=== PATIENT | female | born 1970 | race Caucasian/White ===

== ENCOUNTER → 2018-07-01 10:31 | Outpatient (CLI) | payer OTHER, SELFPAY ==
[2018-07-01 11:54] LABS: Absolute Neutrophil Count 8.3 X10^3/uL (2.0-7.7); Basophil# 0.02 X10^3/uL; Basophil% 0.2 % (0-1); Eosinophil# 0.05 X10^3/uL; Eosinophils% 0.5 % (0-5); Hematocrit 33.3 % (37-47); Hemoglobin 10.8 g/dl (12.0-15.0); Lymphocyte % 9.5 % (19-41); Mean Corp Hgb Conc 32.4 g/gl (32-36); Mean Corpuscular Hgb 28.6 pg (27.0-32.0); Mean Corpuscular Volume 88.3 fL (81-99); Mean Platelet Vol. 8.6 fl (6.2-12.0); Monocyte# 0.94 X10^3/uL; Monocyte% 8.9 % (0-10); Neutrophil # 8.32 X10^3/uL (2.7-7.7); Neutrophil % 78.9 % (47-70); Platelet Count 387 K/mm3 (150-450); RBC Distribution Width CV 15.4 % (11.6-14.6); Red Blood Count 3.77 M/mm3 (4.2-5.4); White Blood Count 10.5 K/mm3 (4.4-11.0)
[2018-07-01 11:58] LABS: POSITIVE COUNT YES; POSITIVE DIFFERENTIAL NO; POSITIVE MORPHOLOGY YES
[2018-07-01 11:59] LABS: ALB/GLOB Ratio 0.6 RATIO (0.9-2.4); AST(SGOT) 13 U/L (15-37); Alanine Aminotransfer ALT/SGPT 20 U/L (13-56); Albumin, Serum 2.4 g/dL (3.2-5.0); Alkaline Phosphatase 210 U/L (45-117); Anion Gap 11 (5-15); BUN 14 mg/dL (7-18); BUN/Creat Ratio 23.5 RATIO (10-20); Calcium,Total 8.3 mg/dL (8.5-10.1); Chloride 100 mmol/L (98-107); EST Glomerular Filtration Rate 115 mL/min (>60); Est Glom Filt Rate - Afr Amer 139 mL/min (>60); Globulin 4.1 g/dL (2.2-4.2); Glucose 82 mg/dL (74-106); Potassium 3.3 mmol/L (3.5-5.1); Protein, Total 6.5 g/dL (6.4-8.2); Sodium Level 138 mmol/L (136-145)
[2018-07-04 11:35] LABS: Pathologist Review Reviewed
== END ==
PROVIDERS: Family Provider Internal Medicine; PCP Internal Medicine; Referring Provider Urology; Visit Provider Urology
DX: N12 Tubulo-interstitial nephritis, not specified as acute or chronic (principal)
CPT/HCPCS: 36415; 80053; 85025

== ENCOUNTER → 2019-06-15 09:30 | Outpatient (CLI) | payer OTHER, SELFPAY ==
--- NOTE | 2019-06-15 06:55 | PCM.HP.OB ---
- Problem List (1) Menorrhagia Status: Acute History Date of Admission: 06/15/19 History of this : This is a 48 year-old with a history of new menorrhagia over the last 3 years. Cycles are regular. Medical History: Medical History (Last Updated 06/15/19 @ 06:56 by Luz Miner DO) Anxiety F41.9 Hypothyroid E03.9 Surgical History: Surgical History (Last Updated 06/15/19 @ 06:56 by Luz Miner DO) History of spinal fusion Z98.1 Allergies morphine Allergy (Verified 06/08/19 09:47) Hives sulfamethoxazole [From Bactrim] Allergy (Verified 06/08/19 09:47) Hives trimethoprim [From Bactrim] Allergy (Verified 06/08/19 09:47) Hives Home Medications: Home Medications Levothyroxine [Synthroid] 112 mcg PO DAILY 06/08/19 Sertraline HCl [Zoloft] 25 mg PO DAILY 06/08/19 Temazepam [Restoril] 7.5 mg PO PRN PRN 06/08/19 traMADol [Ultram (G)] 50 mg PO Q6H PRN PRN 06/08/19 Smoking Status: Former smoker History Past Pregnancies: Past Pregnancies Delivery Date Name GA/ Weeks Outcome Route Wt Sex Labor Length Anesthesia Delivery Location Provider FOB Review of Systems Constitutional: Denies: Fever Eyes: Denies: Blurred vision HEENT: Denies: Difficulty Hearing Cardiovascular: Denies: Chest Pain Respiratory: Denies: Cough, Shortness of Breath Gastrointestinal: Denies: Abdominal Pain Genitourinary: Denies: Dysuria Gynecological: Denies: Vaginal bleeding Psychiatric: Denies: Anxiety, Depression Physical Exam General: Alert, No apparent distress HEENT: Atraumatic Cardiovascular: Regular rate Lungs: Clear to auscultation Abdomen: Soft, Non Tender, Non-Distended Extremities:: No edema Neurological: Neuro grossly intact Assessment/Plan All Active Problems Menorrhagia (Acute) This is a 48 year-old with menorrhagia with regular cycle. Pelvic ultrasound shows a normal size uterus with 2 small fibroids that measure about 1 cm in size. The fibroids are possibly submucosal. Endometrial biopsy was benign. She had thyroid screening that was negative. Options for menorrhagia were discussed including medical management, uterine ablation, hysterectomy. Reviewed that the ablation may fail given the possible small submucosal fibroids. After discussion of risks, benefits, alternatives patient requested to proceed with an ablation.
[2019-06-15 08:25] VITALS: BP 104/77; PULSE 63; RESP 16; TEMP 36.4; O2SAT 100; BMI 18.1
[2019-06-15 08:37] LABS: Internal QC Validated? YES +Cl - CLEAR BKGD
[2019-06-15 08:38] LABS: Pregnancy, Urine Positive Negative
[2019-06-15] MEDS: Lactated Ringers 1,000 ML 100 ML IV (08:39)
[2019-06-15 09:16] LABS: hCG Titer Quant., Serum 6 mIU/mL (1-3)
== END ==
PROVIDERS: Anesthesiology; Family Provider Internal Medicine; PCP Internal Medicine; Referring Provider Obstetrics & Gynecology; Visit Provider Obstetrics & Gynecology
DX: D25.9 Leiomyoma of uterus, unspecified (principal); Z87.891 Personal history of nicotine dependence; Z79.899 Other long term (current) drug therapy; E03.9 Hypothyroidism, unspecified; F41.9 Anxiety disorder, unspecified; N92.0 Excessive and frequent menstruation with regular cycle
CPT/HCPCS: 81025; 84702; 86850; 86900; 86901; J7120

== ENCOUNTER → 2019-06-19 13:03 | Outpatient (CLI) | payer OTHER, SELFPAY ==
[2019-06-15 08:25] VITALS: BMI 18.1
[2019-06-19 14:49] LABS: hCG Titer Quant., Serum 9 mIU/mL (1-3)
== END ==
PROVIDERS: Family Provider Internal Medicine; PCP Internal Medicine; Referring Provider Internal Medicine; Visit Provider Internal Medicine
DX: O02.81 Inappropriate change in quantitative human chorionic gonadotropin (hCG) in early pregnancy (principal); Z3A.00 Weeks of gestation of pregnancy not specified
CPT/HCPCS: 84702

== ENCOUNTER → 2019-06-22 10:27 | Outpatient (CLI) | payer OTHER, SELFPAY ==
[2019-06-15 08:25] VITALS: BMI 18.1
[2019-06-22 10:57] LABS: LDH 181 U/L (84-246)
[2019-06-22 11:00] LABS: hCG Titer Quant., Serum 9 mIU/mL (1-3)
== END ==
PROVIDERS: Family Provider Internal Medicine; PCP Internal Medicine; Referring Provider Internal Medicine; Visit Provider Internal Medicine
DX: O02.81 Inappropriate change in quantitative human chorionic gonadotropin (hCG) in early pregnancy (principal)
CPT/HCPCS: 83615; 84702

== ENCOUNTER → 2019-06-26 15:40 | Outpatient (CLI) | payer OTHER, SELFPAY ==
[2019-06-15 08:25] VITALS: BMI 18.1
[2019-06-26 16:32] LABS: Follicle Stimulating Hormone 132.9 mIU/mL
== END ==
PROVIDERS: Family Provider Internal Medicine; PCP Internal Medicine; Referring Provider Internal Medicine; Visit Provider Internal Medicine
DX: E34.9 Endocrine disorder, unspecified (principal)
CPT/HCPCS: 83001

== ENCOUNTER → 2019-11-03 12:37 | Outpatient (CLI) | payer OTHER, SELFPAY ==
[2019-11-02 15:32] VITALS: BMI 18.1
[2019-11-03 16:07] LABS: Estradiol 276.9 pg/mL; Follicle Stimulating Hormone 6.4 mIU/mL; Free T3 2.1 pg/mL (2.18-3.98); Luteinizing Hormone 2.8 mIU/mL; Prolactin 27.6 ng/mL; T4 Free Direct 0.65 ng/dL (0.76-1.46); Thyroid Stim Hormone (TSH) 3.35 uIU/mL (0.358-3.74)
[2019-11-07 20:03] LABS: Insulin Like Growth Factor 134 ng/mL (57-195)
== END ==
PROVIDERS: Internal Medicine Endocrinology, Diabetes & Metabolism; PCP Internal Medicine; Referring Provider Internal Medicine; Visit Provider Internal Medicine
DX: E03.8 Other specified hypothyroidism (principal); E06.3 Autoimmune thyroiditis; E22.9 Hyperfunction of pituitary gland, unspecified
CPT/HCPCS: 36415; 82533; 82670; 83001; 83002; 84146; 84305; 84439; 84443; 84481

== ENCOUNTER 2019-12-19 07:36 | Day surgery (SDC) | payer OTHER, SELFPAY ==
[2019-11-24 11:32] VITALS: BMI 18.1
[2019-12-11 09:09] VITALS: BMI 18.6
[2019-12-19] VITALS (15 sets, daily range): BP systolic 114–161; BP diastolic 79–101; PULSE 68–84; RESP 15–20; TEMP 35.8–37.3; O2SAT 96–100; BMI 17.9; BMI 18.0
--- NOTE | 2019-12-19 | HYST_PTH ---
PATIENT: DOROTA JOHNS LOC: [facility] [place] U#:[id number] AGE/SX: 49/F ROOM: RE12/19/[address]: Dr. Jane Arroyo MD : 1970 BED: DIS: 12/19/2019 SPEC #: [id number] RECD: 12/19/19 13:38 STATUS: [place] RUTH #: [id number] HERNAN: 12/19/19 00:[address]: Jane Arroyo DEPT: SURGICAL PATHOLOGY RECD BY: Joey Garcia ENTERED: 12/19/19 13:38 SP TYPE: HYSTERECT OTHR DR: Dr. Margie Bearden MD Tissues: Uterus, NOS Procedures: Surgery Specimen Level V HEADER OPERATION: Hysterectomy, LAVH, bilateral salpingectomy, cysto PRE-OP DIAGNOSIS: False positive HCG, uterine fibroid, abnormal uterine bleeding TISSUE SUBMITTED: Uterus, cervix and bilateral fallopian tubes MICROSCOPIC DIAGNOSIS Uterus, cervix and bilateral fallopian tubes, hysterectomy and bilateral salpingectomy: Cervix - mild chronic inflammation. Endometrium - proliferative endometrium. Myometrium - diffuse adenomyosis. - Intramural and subserosal leiomyomas (1 and 1.5 cm in greatest dimension). Bilateral fallopian tubes - no pathologic diagnosis. SJ:anders 12/20/19 MICROSCOPIC DESCRIPTION Slides are reviewed. GROSS DESCRIPTION Received in fixative is one container labeled with the patient's name and designated uterus. The specimen consists of a uterus with attached cervix and attached right and left fallopian tubes. The uterus with cervix measures 10 x 8 x 5.3 cm and weighs 120 gm. The ectocervix is grossly unremarkable. The uterus has previously been opened. The triangular endometrial cavity measures 4 x 3 cm. The endometrium is light wells, velvety and glistening and measures up to 0.1 cm in thickness. The myometrium measures 3 cm in greatest thickness and is grossly consistent with adenomyosis. A single rubbery nodule is present in the subserosa measuring 1.5 cm in greatest dimension. Cut sections of the nodule reveal a whorled appearance. The right and left fallopian tubes are similar in appearance with average lengths of 6.5 cm and average diameter of 0.7 cm. Organic Extractions Technician sections are submitted in nine cassettes as follows: 1 - anterior cervix, 2 - posterior cervix, 3 & 4 - anterior uterine wall, 5 & 6 - posterior uterine wall, 7 - myometrial mass, 8 - right fallopian tube, 9 - left fallopian tube. / AM:anders 12/19/19 TC:5 CPT: 08835
--- NOTE | 2019-12-19 08:06 | HP.PCM_ITS ---
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: Chronic History and Physical Date of Admission: 12/19/19 Intake Vital Signs 12/11/19 Height 5 ft 5 in 12/11/19 Weight: 112 lb 4 oz 12/11/19 BP 100/62 12/11/19 BMI 18.1 Intake Visit Reasons: pre op ERAS Medical Sales Specialist Required: No Is patient in pain?: No Allergies ciprofloxacin [From Cipro] Allergy (Severe, Verified 12/11/19 09:09) Nausea morphine Allergy (Verified 12/11/19 09:09) Hives sulfamethoxazole [From Bactrim] Allergy (Verified 12/11/19 09:09) Hives trimethoprim [From Bactrim] Allergy (Verified 12/11/19 09:09) Hives Medications Sertraline HCl [Zoloft] 25 mg PO DAILY 06/08/19 [History Confirmed 12/11/19] levothyroxine 50 mcg tablet 50 mcg PO DAILY 09/21/19 [History Confirmed 12/11/19] temazepam 30 mg capsule 30 mg PO QHS PRN 09/21/19 [History Confirmed 12/11/19] tramadol 50 mg tablet 50 mg PO Q8H PRN tab 09/21/19 [History Confirmed 12/11/19] Post menopausal: No Patient : No : No [facility] Medical History Anxiety (Acute) H/O urinary tract infection (Acute) Ahmet's disease (Acute) Kidney stones (Acute) Psoriatic arthritis (Acute) Raynauds disease (Acute) Seasonal allergies (Acute) Surgical History History of spinal fusion (Acute) Family History Father blood clots Heart disease Hypertension Hyperlipidemia Sister Breast cancer Uncle Lung cancer Prostate cancer Mother Diabetes CVA (cerebral vascular accident) Thyroid disorder Grandfather Skin cancer Aunt Skin cancer Social History (Updated 12/11/19 @ 09:[address] Jane Arroyo MD) Smoking Status: Former smoker alcohol intake: never substance use type: does not use caffeine: Yes what type of physical activity do you participate in: other frequency: 3-4 times per week seatbelt use: always do you feel safe at home: Yes additional social history: - Patient works at [employer] pre op ERAS: Details: DOROTA JOHNS is a 49 year old who presents for preop visit. she has a history of uterine fibroids with heavy painful menses and irregular bleeding. she also has a history of false positive HCGs but ahs been evaluated by endocrine and it is a false positive. Pregancy History 0 Elective abortions Hx Para Spontaneous abortions Hx # Term Pregnancies Ectopic pregnancies Hx # Pregnancies Multiple births # of living children ROS Const Constitutional: Denies fatigue, fever(s), headache(s), increased appetite, poor appetite, weight gain or weight loss ENT ENT: Denies dizziness or dry mouth Cardio Card: Denies chest pain Resp Resp: Denies cough or dyspnea GI GI: Reports as per HPI; denies abdominal pain, constipation, nausea or vomiting : Reports as per HPI; denies difficulty urinating, painful urination, nipple discharge, urinary frequency, urinary incontinence, urinary hesitancy, urinary urgency, vaginal discharge, vaginal dryness, vaginal odor or vaginal itching Musc Musc: Denies joint pain, back pain or muscle weakness Skin Skin/Breast: Denies nipple discharge Neuro Neuro: Denies dizziness Psych Psych: Denies anxiety or depression Endo Endo: Denies cold intolerance, excessive sweating, heat intolerance or increased thirst Azam/Lymph Hematologic/Lymphatic: Denies easy bleeding, Denies easy bruising, Denies enlarged lymph nodes Exam Const General: cooperative, healthy appearing, comfortable, no acute distress, well developed Nutritional Appearance: average body habitus Orientation: alert HENOR Head: normal to inspection, normocephalic Ears: hearing grossly normal bilaterally, external ears normal Nose: external nose normal, nares normal Face and sinus: normal facial exam Neck Neck: normal visual inspection, trachea midline Thyroid: thyroid normal Chest Chest palpation & inspection: normal inspection of the chest Resp Effort & Inspection: normal respiratory effort Cardio Rate: regular rate Rhythm: regular rhythm GI Inspection: normal to inspection, non-distended Palpation: soft, no hepatosplenomegaly Musc Cervical Spine: other Other: gross motor intact no deficits, full bilateral strength Skin General: no rashes or lesions noted Neuro General: alert, awake, moves all extremities, no focal motor deficits Motor: muscle tone normal throughout Extrem General: normal to inspection, no pedal edema Psych Appearance: grossly normal Mental Status: mental status grossly normal Affect: normal affect Speech and Movement: speech and movement normal Assessment & Plan Problems 1. false positive hcg history of false positive HCG levels, evaluated by endocrine 2. Fibroid, uterine D25.9 3. Abnormal uterine bleeding N93.9 plan LAVH BS possible cysto 4. Hyperpituitarism E22.9 Plan After discussing the patient's diagnosis and treatment plan options, patient wishes to proceed with surgical management. I have discussed with the patient the risks, benefits, and alternatives of the procedure which include but are not limited to risks of anesthesia, bleeding, infection, possible damage to bowel, bladder, or surrounding vasculature which could lead to additional surgery to evaluate any complications. Patient agrees to procedure and wishes to proceed. ACOG/uptodate references given for additional information regarding procedure. Coding Level of Care Code No Charge Diagnoses false positive hcg Fibroid, uterine D25.9 Abnormal uterine bleeding N93.9 Hyperpituitarism E22.9 UPDATE- I have seen the patient and performed any clinically relevant updates to the history and physical exam. Jane Arroyo MD
--- NOTE | 2019-12-19 08:07 | OP.PCM_ITS ---
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 Status: Chronic Report of Operation Date of Procedure: 12/19/19 Pre-Operative Diagnosis: aub fibroids Post-Operative Diagnosis: same Surgery/Procedure Performed:: Laparoscopic-assisted vaginal hysterectomy bilateral salpingectomy cystoscopy Description of Surgical Findings:: enlarged thick fibroid uterus health education director: Jaclyn Garcia Type of Anesthesia:: General Special Medications: sima Specimen's removed: uterus tubes Drains: velez removed at end of procedure Estimated Blood Loss (mL): 100 Fluids Replaced: crystalloid Description of Procedure: Patient received preoperative antibiotics and SCDs were on preoperatively. Patient was taken back to the operating room and placed in the dorsal lithotomy position. General anesthesia was induced and patient was prepped and draped in normal sterile fashion. Uterine manipulator was placed inside the uterus and Velez catheter placed in the bladder. The umbilicus was grasped with towel clamps and an intraumbilical incision was made after injecting with quarter percent Marcaine and a Veress needle entered into the abdomen confirmed to be intra-abdominal with a low opening pressure. Abdomen was insufflated with CO2 gas and the Veress needle removed and the 5 mm trocar was placed under direct visualization without complication. Right and left lower quadrants were transilluminated and injected with quarter percent Marcaine and 5 mm ports placed under direct visualization. Pelvis was well visualized see operative findings for additional information. Bilateral fallopian tubes were identified and transected with the LigaSure device across the mesosalpinx to the level of the utero-ovarian ligament which was also transected with the LigaSure device. The broad ligament was opened up by transecting the round ligament bilaterally and skeletonizing the uterine vessels bilaterally and creating a bladder flap using the LigaSure device. The uterine arteries were transected bilaterally with good visualization of the bladder and the ureters were seen to be inferior lateral to the operative area. Attention was then paid to the vaginal portion of the procedure and the cervix was grasped with Rachel clamps and circumferentially injected with dilute vasopressin. A circumferential incision was made and the vaginal mucosa was mobilized off posteriorly and the cul-de-sac entered into sharply and a longneck speculum placed. The anterior cul-de-sac was then identified and entered into sharply. The uterosacral ligaments were clamped cut and suture ligated with 0 Monocryl bilaterally followed by the cardinal ligaments which were clamped cut and suture ligated bilaterally with 0 Monocryl. The uterus serially descended and was removed without difficulty with minimal morcellation. Pelvic sidewall pedicles were checked and noted to have excellent hemostasis. The vaginal mucosa was reapproximated incorporating the posterior peritoneum. This was reapproximated using 0 Vicryl [id number] s utures. Excellent hemostasis was noted. The cystoscopy was then performed and bilateral ureteral strong spray was noted and the bladder was noted to have no abnormality or lesions seen. Velez catheter was replaced, drained, and removed and then attention paid to the abdominal portion of the procedure again. The pelvis and cul-de-sac was well visualized and no significant active bleeding noted but some raw areas were seen on the peritoneum and therefore Sima was applied. Pressure was taken down and the areas visualized and noted of excellent hemostasis. All ports were removed under direct visualization without complication and the abdomen was desufflated of air. The instruments removed from the abdomen and the vagina vaginal sweep was negative. small right vaginal laceration noted and repaired with silver nitrate and a 3-0 vicryl rapide. Port sites on the abdomen were closed with 4-0 Monocryl interrupted sutures and Steri's and windows were applied. She was awoken and taken recovery in stable condition. Grafts/Implants Used: none - Complications none - Admit VTE Documentation VTE Present on Admission: No VTE Mechan Device Prophylaxis: SCD's Multi Select Codes - Urinary/Genital Urinary/Genital CPT Codes: 86871 Cystoscopy, 87445 LAVH+BS/O <250gr Uterus
--- NOTE | 2019-12-19 08:11 | DCINST_ITS ---
Discharge Diet: No Restrictions Discharge Activity: Return to Normal Activity, May Not Drive, May Shower May resume sexual activity in: 6-8 weeks Call your doctor if your incision/area has: Continuous Slow Oozing, Sudden Increased Bleeding, Increased Pain/ Swelling, Increased Redness, Foul Smelling Discharge Call your doctor if you observe: Fever of 101 or Higher, Inability to urinate, Inability to have a bowel movement, Using more than one pad per hour Allergies/Adverse Reactions: Allergies ciprofloxacin [From Cipro] Allergy (Severe, Verified 12/12/19 11:05) Nausea morphine Allergy (Verified 12/12/19 11:05) Hives sulfamethoxazole [From Bactrim] Allergy (Verified 12/12/19 11:05) Hives trimethoprim [From Bactrim] Allergy (Verified 12/12/19 11:05) Hives Medications to take at Discharge Sertraline HCl [Zoloft] 25 mg PO DAILY 06/08/19 levothyroxine 50 mcg tablet 50 mcg PO DAILY 09/21/19 temazepam 30 mg capsule 30 mg PO QHS PRN 09/21/19 tramadol 50 mg tablet 50 mg PO Q8H PRN tab 09/21/19 Naproxen [Naprosyn] 250 - 500 mg PO Q8H PRN PRN #30 tab 12/19/19 Oxycodone HCl/Acetaminophen [Percocet 5-325] 1 - 2 tablet PO Q6H PRN PRN 7 Days #15 tablet 12/19/19 The following prescriptions were given: Naproxen [Naprosyn] 250 - 500 mg PO Q8H PRN PRN #30 tab PRN Reason: MILD PAIN Transmission Status: Pending to [facility] Oxycodone HCl/Acetaminophen [Percocet 5-325] 1 - 2 tablet PO Q6H PRN PRN 7 Days #15 tablet PRN Reason: Pain Transmission Status: Sent to [facility] Orders to be completed after discharge: Type & Screen - PAT ONLY Time Frame: 12/19/19, Facility: [facility], Location: Laboratory CBC-Complete Blood Cnt No Diff Time Frame: 12/19/19, Facility: [facility], Location: Laboratory Magnesium Time Frame: 12/19/19, Facility: [facility], Location: Laboratory ,Urine Time Frame: 12/19/19, Facility: [facility], Location: Laboratory Primary Care Physician: Margie Bearden MD [Primary Care Provider] - Test Results: Test results from this visit will be discussed in further detail at your follow- up appointment, if applicable. Please Follow Up With: Jane Arroyo MD - [phone]
[2019-12-19 08:16] LABS: Bedside Glucose 69 mg/dL (70-110)
[2019-12-19] MEDS: Acetaminophen 500 MG Tablet 1000 MG PO ×2 (08:32→15:39)
[2019-12-19] MEDS: Celecoxib 200 MG Capsule 400 MG PO (08:34)
[2019-12-19] MEDS: Gabapentin 600 MG Tablet PO (08:35)
[2019-12-19] MEDS: Phenazopyridine 95 MG Tablet 190 MG PO (08:35)
[2019-12-19] MEDS: Scopolamine 1mg/72hr Patch 1 PATCH TRANSDERM. (08:37)
[2019-12-19] MEDS: Lactated Ringers 1,000 ML 40 ML IV ×2 (08:39→10:45)
[2019-12-19] MEDS: dexAMETHasone 10 MG/ML Vial 8 MG IV (08:39)
[2019-12-19] MEDS: Enoxaparin 40 MG/0.4 ML Syringe SC (08:41)
[2019-12-19 08:50] LABS: Hematocrit 36.9 % (37-47); Mean Corp Hgb Conc 29.8 g/dL (32-36); Mean Corpuscular Volume 90.4 fL (81-99); Mean Platelet Vol. 8.7 fl (6.2-12.0); Platelet Count 319 K/mm3 (150-450); RBC Distribution Width CV 13.6 % (11.6-14.6); RBC Distribution Width SD 44.6 fl (35.1-43.9); Red Blood Count 4.08 M/mm3 (4.2-5.4); White Blood Count 6.2 K/mm3 (4.4-11.0)
[2019-12-19 08:56] LABS: Magnesium 2.3 mg/dL (1.6-2.6)
[2019-12-19] MEDS: Cefazolin 2 GM in 0.9% Normal Saline 100 ML IV (09:10)
[2019-12-19] MEDS: Ondansetron 4 MG/2 ML Vial IV (09:20)
[2019-12-19] MEDS: Bupivacaine 0.25% 30 ML Vial (09:57)
[2019-12-19] MEDS: Vasopressin 20 UNITS/ML Vial (10:21)
[2019-12-19] MEDS: Silver Nitrate (BKC) 1 EACH (10:36)
[2019-12-19] MEDS: oxyCODONE 5 MG Tablet PO (12:47)
[2019-12-19 13:34] LABS: Hematocrit 36.5 % (37-47); Mean Corp Hgb Conc 30.1 g/dL (32-36); Mean Corpuscular Hgb 26.8 pg (27.0-32.0); Mean Platelet Vol. 8.7 fl (6.2-12.0); Platelet Count 306 K/mm3 (150-450); RBC Distribution Width CV 13.4 % (11.6-14.6); White Blood Count 12.2 K/mm3 (4.4-11.0)
--- NOTE | 2019-12-19 13:58 | SUR.PHASEII ---
christianne pad changed due to large amt red vaginal drainage. umbillical dressing changed due to red drainage oozing beyond dressing. notified dr tricia elmore of umbillical drainage. instructed to apply pressure and call md if oozing persists through 4x4.
[2019-12-19] MEDS: Estrogens,Conj. 1 Tube 1 DOSE (14:09)
--- NOTE | 2019-12-19 14:16 | SUR.PHASEII ---
NOTIFIED DR QUILES REGARDING OOZING HAS CONTINUED FROM UMBILICAL INCISION. ALSO VAGINAL PAD HAS LG AMT RED DRAINAGE. WILL COME TO ASSESS PT AND APPLY PACKING NEEDED.
[2019-12-19] MEDS: Lactated Ringers 1,000 ML 70 ML IV (15:31)
[2019-12-19] MEDS: Ketorolac 30 MG/ML Syringe IV (15:32)
--- NOTE | 2019-12-19 17:30 | NURSING ---
pt with increased amount of bright red bleeding with clots. Dr. Arroyo at bedside for vaginal packing
[2019-12-19] MEDS: FERRIC SUBSULFATE 8 GM SOLN (18:43)
--- NOTE | 2019-12-19 20:05 | NURSING ---
Off going RN spoke with Dr. Arroyo, new order placed that pt needs to void within 2 hours or will have to receive velez and remain hospitalized overnight. If able to void pt may be d/c home. Pt was able to void 200ml of urine. No new bleeding on pad or packing, packing remains intact. Pt states no pain, vitals are stable. Pt provided with verbal and written discharge instructions including to call Dr. Arroyo's office at 8AM to schedule a time for packing to be removed. Pt has all valuables, prescriptions have already been picked up today. Pt is being assisted by [employer] via wheelchair to Main Entrance where pt's ride is currently waiting. Pt does not have any other questions or needs at this time.
== END 2019-12-19 20:05 | disposition home or self-care (01) ==
LOC: SDC 07:42 → AC 07:42 → MS3 14:39
PROVIDERS: Anesthesiology; PCP Internal Medicine; Referring Provider Obstetrics & Gynecology; Visit Provider Obstetrics & Gynecology
PROC: 0UT9FZZ Resection of Uterus, Via Natural or Artificial Opening With Percutaneous Endoscopic Assistance (ICD-10-PCS; CPT 58552; principal; 2019-12-19 09:05)
DX: D25.1 Intramural leiomyoma of uterus (principal); D25.0 Submucous leiomyoma of uterus; E06.3 Autoimmune thyroiditis; E22.9 Hyperfunction of pituitary gland, unspecified; L40.50 Arthropathic psoriasis, unspecified; I73.00 Raynaud's syndrome without gangrene; F41.9 Anxiety disorder, unspecified; Z79.899 Other long term (current) drug therapy; Z87.891 Personal history of nicotine dependence
CPT/HCPCS: 00944; 58552; 36415; 82962; 83735; 85027; 86850; 86900; 86901; 87635; 88307; 99251; G2023; J7120; G0463; J2405; U0003

== ENCOUNTER 2020-02-06 13:58 | Emergency (ER) | payer OTHER, SELFPAY ==
[2020-01-02 10:04] VITALS: BMI 18.0
[2020-02-06 13:59] VITALS: BP 123/71; PULSE 75; PULSE 79; RESP 12; RESP 15; TEMP 36.6; O2SAT 100; BMI 18.5
--- NOTE | 2020-02-06 14:17 | EKG12_ITS ---
Test Reason : SEIZURES Blood Pressure : / mmHG Vent. Rate : 075 BPM Atrial Rate : 075 BPM P-R Int : 176 ms QRS Dur : 086 ms QT Int : 456 ms P-R-T Axes : 081 -13 069 degrees QTc Int : 509 ms Normal sinus rhythm Possible Left atrial enlargement Inferior infarct (cited on or before 06-FEB-2020) Prolonged QT Abnormal ECG When compared with ECG of 27-SEP-2002 13:09, Vent. rate has decreased BY 46 BPM Confirmed by ROEL MICHAELS ([id number]), editor dictionary BEBETO CISNEROS ([id number]) on 02/19/2020 10:07:03 AM Referred By: TY Confirmed By:ROEL MICHAELS
--- NOTE | 2020-02-06 14:17 | CT_ITS ---
STUDY: CT BRAIN WITHOUT CONTRAST REASON FOR EXAM: Female, 49 years old. NEW ONSET OF SEIZURE, GRAND MAL SZ LASTING 1 MIN-WITNESSED BY COWORKERS, NAUSEA, LIGHTHEADED RADIATION DOSAGE (If Supplied By Facility): CTDIvol = ( 44.99 ) mGy, DLP = ( 779.24 ) mGycm TECHNIQUE: Transaxial CT imaging of the brain was performed without administration of intravenous contrast material. Individualized dose optimization techniques were used for this CT. COMPARISON: No relevant priors. FINDINGS: Normal soft tissue structures. Normal calvarium. Normal size ventricles and extra-axial spaces for the patient''s age. Normal white matter tracts of the cerebral hemispheres. Normal basal ganglia and thalami. Normal brainstem. Normal cerebellum. There is no intracranial hemorrhage. There are no findings of an acute ischemic infarction. Partial opacification of the left maxillary sinus and ethmoid sinuses bilaterally. Mucosal thickening along the anterior aspect of the sphenoid sinus. CT/Brain/Head without Contrast IMPRESSION: Normal unenhanced CT scan of the brain. Sinusitis. Electronically Signed: Clarke Bella, at 15:02 EDT , Service support ,
--- NOTE | 2020-02-06 14:18 | ED.DCSUM_ITS ---
History of Present Illness Chief Complaint: Seizure Narrative: Patient is a 49-year-old female who presents after a seizure. She has no prior history of seizures. Per bystanders she had 1 minute of tonic-clonic grand mal seizure-like activity. The patient states she just remembers waking on the floor. She denies any pain or injuries. Currently she has some mild nausea and feels tired but otherwise really has no complaints. She denies alcohol or drug use. She has a history of hypothyroidism and depression. She denies diabetes hypertension hyperlipidemia. She is not anticoagulated. She denies headache. Past Medical History - Allergies and Home Meds Allergies/Adverse Reactions: Allergies ciprofloxacin [From Cipro] Allergy (Severe, Verified 02/06/20 14:02) Nausea morphine Allergy (Verified 02/06/20 14:02) Hives sulfamethoxazole [From Bactrim] Allergy (Verified 02/06/20 14:02) Hives trimethoprim [From Bactrim] Allergy (Verified 02/06/20 14:02) Hives Primary Care Physician: Margie Bearden MD [Primary Care Provider] - Past Medical History: - - Hypothyroidism, depression Smoking Status: Former smoker Review of Systems All systems negative except as indicated General: Denies: Fever Cardiovascular: Denies: Chest pain Respiratory: Denies: Dyspnea Gastrointestinal: Reports: Nausea. Denies: Vomiting Musculoskeletal: Denies: Myalgias, Arthralgias Skin: Denies: Rash Neurological: Denies: Headache Hematologic: Denies: Easy bruising Allergy: Denies: Uticaria Physical Exam Vital Signs/Narrative: Vital Signs Temp Pulse Resp BP Pulse Ox 02/06/20 13:59 97.9 F 79 15 123/71 H 100 Inital Vital Signs reviewed: Yes General: Well nourished, Well developed Head: Normocephalic, Atraumatic Eyes: Perrl, EOMI ENT: Moist mucous membranes Neck: Supple Cardiovascular: Regular rate, Regular rhythm Respiratory: No distress, CTA bilaterally Abdomen: Soft, Nontender Skin: Normal color Neurological: Alert, - Psychological: Normal affect Diagnostic/Tx/Re-eval Impressions Brain CT 02/06/20 14:17 IMPRESSION: Normal unenhanced CT scan of the brain. Sinusitis. Electronically Signed: Clarke Bella, at 15:02 EDT , Service support , Chest X-Ray 02/06/20 14:50 IMPRESSION: 2.2 cm x 2.2 cm irregular density in the left lower lobe as described. This may represent a focal infiltrate. Radiographic follow-up is recommended. Electronically Signed: Clarke Bella, at 15:16 EDT , Service support , 02/06/20 14:17 Brain/Head without Contrast [CT] Stat 02/06/20 14:50 Chest 1 View (Portable) [RAD] Stat 02/06/20 15:28 CT Chest [Chest WITH Contrast] [CT] Stat Laboratory Results 02/06/20 02/06/20 02/06/20 14:20 14:20 14:20 WBC 6.3 RBC 4.29 Hgb 10.3 L Hct 35.9 L MCV 83.7 MCH 24.0 L MCHC 28.7 L RDW Std Deviation 43.8 RDW Coeff of Cally 14.3 Plt Count 377 MPV 8.7 Immature Gran % (Auto) 0.600 Neut % (Auto) 54.5 Lymph % (Auto) 29.5 [place] % (Auto) 8.9 Eos % (Auto) 5.4 H Baso % (Auto) 1.1 H Absolute Neuts (auto) 3.4 Absolute Lymphs (auto) 1.86 Nucleated RBC % 0 Sodium 140 Potassium 3.3 L Chloride 104 Carbon Dioxide 25.0 Anion Gap 11 BUN 14 Creatinine 0.90 Estim Creat Clear Calc 60.94 Est GFR (MDRD) Af Amer 86 Est GFR (MDRD) Non-Af 71 BUN/Creatinine Ratio 15.6 Glucose 93 Calcium 8.5 Total Bilirubin 0.40 AST 26 ALT 19 Alkaline Phosphatase 71 Total Protein 7.6 Albumin 3.9 Globulin 3.7 Albumin/Globulin Ratio 1.1 Ethyl Alcohol 8.0 - Medical Decision Making EKG shows normal sinus rhythm at a rate of 75 with no acute ischemic changes. Laboratory evaluation as above essentially unremarkable. A 2.2 x 2.2 nodular density is noted in the left lower lobe which may represent infiltrate. Patient has no leukocytosis fever cough or chest pain. I did order a CT of the chest to try to further characterize this. The patient will prefer to have this done as an outpatient which I believe is reasonable but did stress the importance of follow-up. CT of the head was negative. With a first-time seizure I believe outpatient neurology follow-up with seizure precaution/driving precautions appropriate. I stressed the importance of follow-up and return for any new or w orsening symptoms and the patient was discharged. ED Disposition - Plan for ED Patient: Disposition: Home or Assisted Living Diagnosis: Seizure, Abnormal chest xray Instructions: ED Seizure New Onset Unk Cause Referrals: Margie Bearden MD [Primary Care Provider] - Jeff Nguyễn MD [STAFF PHYSICIAN] - Additional Instructions: You appear to have had a first seizure today. It is recommended that you do not drive or operate any machinery or place herself in a situation may be dangerous if you have a seizure until follow-up with neurology. Additionally your chest x-ray showed a possible nodule. You will need some type of repeat imaging to reevaluate this. It is very important that you follow-up with your primary care physician in regards to this. Processes including cancer cannot be ruled out.
[2020-02-06 14:30] LABS: Absolute Lymphocyte Count 1.86 X10^3/uL (0.83-4.51); Absolute Neutrophil Count 3.4 X10^3/uL (2.0-7.7); Basophil# 0.07 X10^3/uL; Basophil% 1.1 % (0-1); Eosinophil# 0.34 X10^3/uL; Eosinophils% 5.4 % (0-5); Hematocrit 35.9 % (37-47); Hemoglobin 10.3 g/dL (12.0-15.0); Lymphocyte # 1.86 X10^3/ul (4.0); Lymphocyte % 29.5 % (19-41); Mean Corp Hgb Conc 28.7 g/dL (32-36); Mean Corpuscular Volume 83.7 fL (81-99); Mean Platelet Vol. 8.7 fl (6.2-12.0); Monocyte# 0.56 X10^3/uL; Monocyte% 8.9 % (0-10); NRBC Flagged by Analyzer 0 % (0-5); Neutrophil # 3.43 X10^3/uL (2.7-7.7); Neutrophil % 54.5 % (47-70); Platelet Count 377 K/mm3 (150-450); RBC Distribution Width CV 14.3 % (11.6-14.6); RBC Distribution Width SD 43.8 fl (35.1-43.9); Red Blood Count 4.29 M/mm3 (4.2-5.4); White Blood Count 6.3 K/mm3 (4.4-11.0)
[2020-02-06] MEDS: Ondansetron 4 MG/2 ML Vial IV (14:33)
[2020-02-06] MEDS: 0.9% Normal Saline 1,000 ML 1000 ML IV (14:34)
[2020-02-06 14:44] LABS: ALB/GLOB Ratio 1.1 RATIO (0.9-2.4); AST(SGOT) 26 U/L (15-37); Alanine Aminotransfer ALT/SGPT 19 U/L (13-56); Albumin, Serum 3.9 g/dL (3.2-5.0); Alkaline Phosphatase 71 U/L (45-117); Anion Gap 11 (5-15); BUN 14 mg/dL (7-18); BUN/Creat Ratio 15.6 RATIO (10-20); Calcium,Total 8.5 mg/dL (8.5-10.1); Chloride 104 mmol/L (98-107); EST Glomerular Filtration Rate 71 mL/min (>60); Est Glom Filt Rate - Afr Amer 86 mL/min (>60); Estimated Creatinine Clearance 60.94 ml/min; Globulin 3.7 g/dL (2.2-4.2); Glucose 93 mg/dL (74-106); Potassium 3.3 mmol/L (3.5-5.1); Protein, Total 7.6 g/dL (6.4-8.2); Sodium Level 140 mmol/L (136-145)
--- NOTE | 2020-02-06 14:50 | RAD_ITS ---
STUDY: X-RAY CHEST REASON FOR EXAM: Female, 49 years old. Patient had seizure while at work, no major medical Hx TECHNIQUE: Single AP portable view of the chest. COMPARISON: None. FINDINGS: EKG electrodes are seen. Hyperinflation. There is evidence of a 2.2 cm x 2.2 cm irregular nodular density in the left lower lobe. This may represent a focal infiltrate. Radiographic follow-up is recommended. There is no demonstrated pleural abnormality. Normal size heart. Normal mediastinum and deangelo. Normal visualized pulmonary arteries. Normal visualized aortic arch and descending thoracic aorta. Normal visualized thoracic spine. Prior fusion in the lower cervical spine. There is no demonstrated abnormality of the visualized soft tissue structures of the upper abdomen. RAD/Chest 1 View (Portable) IMPRESSION: 2.2 cm x 2.2 cm irregular density in the left lower lobe as described. This may represent a focal infiltrate. Radiographic follow-up is recommended. Electronically Signed: Clarke Bella, at 15:16 EDT , Service support ,
== END 2020-02-06 16:27 | disposition home or self-care (01) ==
PROVIDERS: Emergency Provider Emergency Medicine; PCP Internal Medicine
DX: R56.9 Unspecified convulsions (principal); F32.9 Major depressive disorder, single episode, unspecified; E03.9 Hypothyroidism, unspecified; Z79.899 Other long term (current) drug therapy; Z87.891 Personal history of nicotine dependence
CPT/HCPCS: 70450; 71045; 80053; 80320; 85025; 93005; 96361; 96374; 99285; J7030; A4216; G0480; J2405

== ENCOUNTER → 2020-02-14 06:29 | Outpatient (CLI) | payer OTHER, SELFPAY ==
[2020-02-06 13:59] VITALS: BMI 18.5
--- NOTE | 2020-02-14 06:37 | MRI_ITS ---
STUDY: MRI BRAIN WITH AND WITHOUT CONTRAST REASON FOR EXAM: Female, 49 years old. seizure -- grand mal seizure, 1st seizure, NKI TECHNIQUE: Standardized multiplanar fat and water weighted pulse sequences were obtained. IV dotarem 10ml was administered for the contrast portion of the examination. COMPARISON: None. FINDINGS: Normal size of the ventricles and extra-axial spaces for the patient''s age. Normal white matter tracts of the supratentorial brain. Normal bilateral basal ganglia. Normal thalami. There is no extra-axial fluid accumulation. Normal flow voids within the major intracranial circulation suggesting patency by spin echo criteria. Normal venous enhancement. There is no enhancing intra-axial or extra-axial abnormality. Normal sella turcica, pituitary gland, infundibular stalk, optic chiasm and hypothalamus. Normal tectal plate and pineal gland. Normal midbrain, dk and medulla. Normal cerebellum. Normal basal cisterns. Normal bilateral temporal bones. Normal bilateral internal auditory canals. No demonstrated orbital abnormality, within the constraints of a routine brain study. There is mucoperiosteal inflammatory disease of the paranasal sinuses consistent with moderate chronic sinusitis. Normal calvarium and skull base. Normal visualized soft tissue structures. Normal visualized upper cervical spine. MRI/Brain W/WO Contrast IMPRESSION: No acute intracranial abnormality. Moderate chronic sinusitis. Electronically Signed: Brandyn Montoya, at 16:06 EDT Tel , Service support ,
--- NOTE | 2020-02-14 07:33 | CT_ITS ---
STUDY: CT CHEST WITH T WITHOUT CONTRAST REASON FOR EXAM: Female, 49 years old. LLL NODULE RADIATION DOSAGE (If Supplied By Facility): CTDIvol = ( 7.21 ) mGy, DLP = ( 233.71 ) mGycm TECHNIQUE: Transaxial imaging was performed pre-and post contrast administration of . Individualized dose optimization techniques were used for this CT. COMPARISON: Chest x-ray 02/06/2020, CT chest 07/13/2011 FINDINGS: Stable 6 and 4 mm nodules in the posterior right lower lobe on image 67 of series 5, when compared to study from 2011. These are considered benign. Stable 7 mm benign nodule in the right lower lobe on image 95. Stable 7 mm left lower lobe nodule on image 77. There is no demonstrated pleural abnormality. Normal heart and pericardium. Normal mediastinum. Normal hilar regions. Normal enhanced and unenhanced pulmonary arteries. Normal aorta arch and descending thoracic aorta. Cervical spine fusions. There is no demonstrated abnormality of the visualized upper abdomen. CT/Chest W/WO Contrast IMPRESSION: Stable bilateral pulmonary nodules when compared to 2012 study, considered benign. No new dominant suspicious pulmonary nodule or mass is seen. Electronically Signed: Cuauhtemoc Randall MD at 17:21 EDT Tel , Service support ,
== END ==
PROVIDERS: PCP Internal Medicine; Referring Provider Internal Medicine; Visit Provider Internal Medicine
DX: G40.409 Other generalized epilepsy and epileptic syndromes, not intractable, without status epilepticus (principal); R91.1 Solitary pulmonary nodule
CPT/HCPCS: 70553; 71270; A9575; Q9967

== ENCOUNTER → 2020-03-15 | Outpatient (CLI) | payer BC, SELFPAY ==
[2020-02-27 15:07] VITALS: BMI 18.5
[2020-03-15 11:44] LABS: Absolute Lymphocyte Count 1.53 X10^3/uL (0.83-4.51); Absolute Neutrophil Count 3.4 X10^3/uL (2.0-7.7); Basophil# 0.05 X10^3/uL; Basophil% 0.8 % (0-1); Eosinophils% 9.8 % (0-5); Hematocrit 37.3 % (37-47); Hemoglobin 10.8 g/dL (12.0-15.0); Lymphocyte # 1.53 X10^3/ul (4.0); Lymphocyte % 25.1 % (19-41); Mean Corpuscular Hgb 23.8 pg (27.0-32.0); Mean Corpuscular Volume 82.3 fL (81-99); Mean Platelet Vol. 9.5 fl (6.2-12.0); Monocyte# 0.45 X10^3/uL; Monocyte% 7.4 % (0-10); NRBC Flagged by Analyzer 0 % (0-5); Neutrophil # 3.44 X10^3/uL (2.7-7.7); Neutrophil % 56.4 % (47-70); Platelet Count 377 K/mm3 (150-450); RBC Distribution Width CV 15.5 % (11.6-14.6); RBC Distribution Width SD 46.4 fl (35.1-43.9); Red Blood Count 4.53 M/mm3 (4.2-5.4); White Blood Count 6.1 K/mm3 (4.4-11.0)
[2020-03-15 11:58] LABS: Vitamin B12 411 pg/mL (211-911)
[2020-03-15 12:08] LABS: Ferritin 7 ng/mL (8-252); Iron 20 ug/dL (50-170); Iron Binding Capacity,Total 508 ug/dL (250-450); PERCENT IRON SATURATION 3.9 % (15.0-55.0); Potassium 4.2 mmol/L (3.5-5.1)
== END | disposition home or self-care (01) ==
LOC: LABSPEC 10:40
PROVIDERS: PCP Internal Medicine; Referring Provider Nurse Practitioner Family; Visit Provider Nurse Practitioner Family
DX: D64.9 Anemia, unspecified (principal); E87.6 Hypokalemia
CPT/HCPCS: 82607; 82728; 82746; 83540; 83550; 84132; 85025

== ENCOUNTER → 2020-04-19 06:30 | Outpatient (CLI) | payer BC, SELFPAY ==
[2020-02-27 15:07] VITALS: BMI 18.5
--- NOTE | 2020-04-19 09:39 | TELEMED_ITS ---
[facility] has confirmed receipt of a request for visit. This document confirms receipt of the order initiating the consult. To find the results of the consultation, please view the patient's reports for the scanned Telemed Consult.
== END ==
PROVIDERS: PCP Internal Medicine; Referring Provider Nurse Practitioner Family; Visit Provider Nurse Practitioner Family
DX: R56.9 Unspecified convulsions (principal)
CPT/HCPCS: 95819

== ENCOUNTER → 2020-06-18 16:18 | Outpatient (CLI) | payer BC, SELFPAY ==
[2020-06-14 09:37] VITALS: BMI 18.5
--- NOTE | 2020-06-18 16:20 | RAD_ITS ---
STUDY: X-RAY - RIGHT HAND REASON FOR EXAM: Right hand pain, arthritis. TECHNIQUE: 3 view(s) of the hand. COMPARISON: None. FINDINGS: Normal radiocarpal articulation. Normal distal radioulnar joint. Normal visualized carpal bones. Normal carpal articulations Normal carpometacarpal articulation of the thumb. Normal second through fifth carpometacarpal joints. Normal metacarpi. Normal metacarpophalangeal joint of the thumb. Normal interphalangeal joint of the thumb. Normal proximal and distal phalanges of the thumb. Normal metacarpophalangeal joints of the second through fifth fingers. Normal proximal and distal interphalangeal joints of the second through fifth fingers. Normal phalanges of the second through fifth fingers. The soft tissue structures are unremarkable. RAD/Hand Min 3 Views IMPRESSION: Normal x-ray examination of the right hand without demonstrated arthropathy. Electronically Signed: Carlos Jefferson MD at 12:10 EST Tel , Service support ,
--- NOTE | 2020-06-18 16:20 | RAD_ITS ---
STUDY: X-RAY - LEFT HAND REASON FOR EXAM: Female, 49 years old. PAIN, ARTHRITIS TECHNIQUE: 3 view(s) of the hand. COMPARISON: None. FINDINGS: Normal radiocarpal articulation. Normal distal radioulnar joint. Normal visualized carpal bones. Normal carpal articulations Normal carpometacarpal articulation of the thumb. Normal second through fifth carpometacarpal joints. Normal metacarpi. Normal metacarpophalangeal joint of the thumb. Normal interphalangeal joint of the thumb. Normal proximal and distal phalanges of the thumb. Normal metacarpophalangeal joints of the second through fifth fingers. Normal proximal and distal interphalangeal joints of the second through fifth fingers. Normal phalanges of the second through fifth fingers. The soft tissue structures are unremarkable. RAD/Hand Min 3 Views IMPRESSION: Normal x-ray examination of the hand. No inflammatory arthropathy. Electronically Signed: Duncan Chavez, at 19:44 EST Tel , Service support ,
--- NOTE | 2020-06-18 16:21 | RAD_ITS ---
STUDY: X-RAY - LEFT KNEE REASON FOR EXAM: Female, 49 years old. PAIN, ARTHRITIS TECHNIQUE: 4 view(s) of the knee. COMPARISON: None. FINDINGS: Normal visualized distal femur. Normal visualized proximal tibia and fibula. Normal proximal tibiofibular articulation. Normal medial femorotibial compartment. Normal lateral femorotibial compartment. Normal patellofemoral articulation. The soft tissue structures are unremarkable. RAD/Knee 4 or More Views IMPRESSION: Normal x-ray examination of the knee. Electronically Signed: Duncan Chavez, at 19:43 EST Tel , Service support ,
--- NOTE | 2020-06-18 16:21 | RAD_ITS ---
STUDY: X-RAY - RIGHT KNEE REASON FOR EXAM: Female, 49 years old. PAIN, ARTHRITIS TECHNIQUE: 3 view(s) of the knee. COMPARISON: None. FINDINGS: Normal visualized distal femur. Normal visualized proximal tibia and fibula. Normal proximal tibiofibular articulation. Normal medial femorotibial compartment. Normal lateral femorotibial compartment. Normal patellofemoral articulation. The soft tissue structures are unremarkable. RAD/Knee 4 or More Views IMPRESSION: Normal x-ray examination of the knee. Electronically Signed: Duncan Chavez, at 19:44 EST Tel , Service support ,
== END ==
PROVIDERS: PCP Internal Medicine; Referring Provider Internal Medicine; Visit Provider Internal Medicine
DX: M19.90 Unspecified osteoarthritis, unspecified site (principal)
CPT/HCPCS: 73130; 73564

== ENCOUNTER → 2020-11-07 | Outpatient (CLI) | payer BC, SELFPAY ==
[2020-06-14 09:37] VITALS: BMI 18.5
[2020-11-07 10:11] LABS: Absolute Lymphocyte Count 1.12 X10^3/uL (0.83-4.51); Absolute Neutrophil Count 4.4 X10^3/uL (2.0-7.7); Basophil# 0.07 X10^3/uL; Basophil% 1.1 % (0-1); Eosinophil# 0.35 X10^3/uL; Eosinophils% 5.4 % (0-5); Hematocrit 37.9 % (37-47); Hemoglobin 11.5 g/dL (12.0-15.0); Lymphocyte # 1.12 X10^3/ul (0.83-4.51); Lymphocyte % 17.2 % (19-41); Mean Corp Hgb Conc 30.3 g/dL (32-36); Mean Corpuscular Hgb 27.7 pg (27.0-32.0); Mean Corpuscular Volume 91.3 fL (81-99); Monocyte# 0.55 X10^3/uL; Monocyte% 8.4 % (0-10); NRBC Flagged by Analyzer 0 % (0-5); Neutrophil # 4.39 X10^3/uL (2.7-7.7); Neutrophil % 67.3 % (47-70); Platelet Count 482 K/mm3 (150-450); RBC Distribution Width CV 15.1 % (11.6-14.6); Red Blood Count 4.15 M/mm3 (4.2-5.4); White Blood Count 6.5 K/mm3 (4.4-11.0)
[2020-11-07 10:17] LABS: Erythrocyte Sedimentation Rate 12 mm/hr (0-30)
[2020-11-07 10:32] LABS: ALB/GLOB Ratio 1.2 RATIO (0.9-2.4); AST(SGOT) 22 U/L (15-37); Alanine Aminotransfer ALT/SGPT 19 U/L (13-56); Albumin, Serum 3.6 g/dL (3.2-5.0); Alkaline Phosphatase 94 U/L (45-117); Anion Gap 6 (5-15); BUN 14 mg/dL (7-18); BUN/Creat Ratio 21.2 RATIO (10-20); CRP 3.87 mg/L (0.0-3.0); Calcium,Total 8.6 mg/dL (8.5-10.1); Chloride 107 mmol/L (98-107); Creatinine, Serum 0.66 mg/dL (0.55-1.02); EST Glomerular Filtration Rate 101 mL/min (>60); Est Glom Filt Rate - Afr Amer 122 mL/min (>60); Glucose 74 mg/dL (74-106); Potassium 3.4 mmol/L (3.5-5.1); Protein, Total 6.6 g/dL (6.4-8.2); Sodium Level 142 mmol/L (136-145)
[2020-11-07 10:45] LABS: Ferritin 10 ng/mL (8-252); Iron 21 ug/dL (50-170); Iron Binding Capacity,Total 473 ug/dL (250-450); Rheumatoid Factor < 10.0 IU/mL (<15); T4 Free Direct 0.82 ng/dL (0.76-1.46); Thyroid Stim Hormone (TSH) 4.25 uIU/mL (0.358-3.74)
[2020-11-07 11:03] LABS: Vitamin B12 302 pg/mL (211-911)
[2020-11-08 19:40] LABS: ANTINUCLEAR ANTIBODIES DIRECT Negative (Negative)
== END | disposition home or self-care (01) ==
LOC: LABSPEC 09:58
PROVIDERS: PCP Internal Medicine; Visit Provider Internal Medicine
DX: D50.9 Iron deficiency anemia, unspecified (principal); E06.3 Autoimmune thyroiditis; M19.90 Unspecified osteoarthritis, unspecified site; R68.84 Jaw pain; M79.10 Myalgia, unspecified site
CPT/HCPCS: 80053; 82607; 82728; 82746; 83540; 83550; 84439; 84443; 84481; 85025; 85652; 86038; 86140; 86431

== ENCOUNTER → 2020-11-30 08:41 | Outpatient (CLI) | payer SELFPAY ==
[2020-06-14 09:37] VITALS: BMI 18.5
--- NOTE | 2020-11-30 08:45 | CT_ITS ---
STUDY: CT FACIAL BONES WITHOUT CONTRAST REASON FOR EXAM: Female, 50 years old. Dental extraction, sharp shooting pain when he lies down. RADIATION DOSAGE (If Supplied By Facility): CTDIvol = ( 29.38 ) mGy, DLP = ( 518.07 ) mGycm TECHNIQUE: The patient was scanned in a multi detector CT scanner. Sagittal and coronal images were reconstructed. Individualized dose optimization techniques were used for this CT. COMPARISON: None. FINDINGS: Normal soft tissue structures. Normal orbital weems and orbital contents. Normal nasal bones and anterior nasal spine. Normal facial bones. There is no demonstrated fracture. Moderate mucosal thickening of the bilateral ethmoid and right more than left maxillary sinuses but no air-fluid levels. Patient is edentulous with dental implants of the mandible. Mild cortical irregularity of the anterior maxilla (image 25 series 3) but no lashay bony destruction or cortical disruption. CT/Sinus/Facial Bone IMPRESSION: No maxillofacial fracture. Total dental extraction. Electronically Signed: Santos Kulkarni MD ([place]) at 17:46 EDT , Service support ,
== END ==
PROVIDERS: PCP Internal Medicine; Referring Provider Internal Medicine; Visit Provider Internal Medicine
DX: S09.93XA Unspecified injury of face, initial encounter (principal); X58.XXXA Exposure to other specified factors, initial encounter; Y93.9 Activity, unspecified; Y92.9 Unspecified place or not applicable; Y99.9 Unspecified external cause status
CPT/HCPCS: 70486

== ENCOUNTER → 2020-12-04 07:08 | Outpatient (CLI) | payer BC, SELFPAY ==
[2020-06-14 09:37] VITALS: BMI 18.5
--- NOTE | 2020-12-04 07:16 | CT_ITS ---
STUDY: CT CHEST WITH CONTRAST REASON FOR EXAM: Female, 50 years old. SOLITARY PULMONARY NODULE. Former smoker. RADIATION DOSAGE (If Supplied By Facility): CTDIvol = ( 7.09 ) mGy, DLP = ( 196.90 ) mGycm TECHNIQUE: Transaxial imaging was performed following intravenous administration of IV 75mL [id number]-[id number]. Multiplanar coronal and sagittal images were reformatted. Individualized dose optimization techniques were used for this CT. COMPARISON: Comparison is made with prior study dated 02/14/2020. FINDINGS: Stable 6 mm and 4 mm nodule in the posterior segment of the right lower lobe as seen on axial image #69 and 70. These abut the pleural surface. Stable 7 mm benign-appearing nodule in the right lower lobe on image #95. This is in the anterior lateral aspect of the right lower lobe. There is no demonstrated pleural abnormality. Normal heart and pericardium. There are multiple small lymph nodes within the mediastinum, which are normal in size and morphology most compatible with reactive lymph hyperplasia. Normal hilar regions. Normal enhanced pulmonary arteries. Normal aorta arch and descending thoracic aorta. There are mild degenerative changes of the thoracic spine. Prior cervical fusion. There is no demonstrated abnormality of the visualized upper abdomen. CT/Chest WITH Contrast IMPRESSION: Stable examination. Electronically Signed: Clarke Bella MD at 12:00 EDT , Service support ,
--- NOTE | 2020-12-04 08:00 | BI_ITS ---
MAMMOGRAPHY - BILATERAL SCREENING REASON FOR EXAM: Female, 50 years old. Routine annual screening examination. PERTINENT HISTORY: Sister with breast cancer. TECHNIQUE: Digital bilateral breast micheline (3D mammographic acquisition) in the CC and MLO projections. 2-D mediolateral oblique (MLO) and craniocaudad (CC) views of both breasts were obtained. CAD: Full Field Digital Mammography with Computer Added Detection was performed. COMPARISON: Comparison is made with prior outside examination dated 08/25/2019. FINDINGS: Breast Composition: The breasts are heterogeneously dense, which may obscure small masses. There are no dominant masses or suspicious calcifications. No other significant abnormalities are identified. There has been no significant change since the prior study. BI/SCRN MAMM (CAD)W/MICHELINE BILAT IMPRESSION: Stable bilateral screening mammogram. Yearly follow-up mammogram recommended. (A) ASSESSMENT CATEGORY: BIRADS Category 1: Negative. A letter regarding these results will be sent to the patient by the facility within 30 days. Approximately 10% of breast cancers are not detected by mammography. A normal mammogram should not delay biopsy of a clinically suspicious abnormality. [id number] Electronically Signed: Clarke Bella MD at 9:23 EDT , Service support ,
--- NOTE | 2020-12-04 08:15 | BD_ITS ---
STUDY: DUAL ENERGY X-RAY ABSORPTIOMETRY / DXA REASON FOR EXAM: Female, 50 years old. [id number]. The patient is postmenopausal. TECHNIQUE: Bone Mineral Density (BMD) measurements of lumbar spine and bilateral hips were obtained. COMPARISON: None. FINDINGS: Lumbar Spine (L1-L4): g/cm2 (1.230) / T-score (0.4) / Z-score (0.7) Findings are suggestive of normal bone density with a low fracture risk. Left Femur Total: g/cm2 (1.035) / T-score (0.2) / Z-score (0.6) Left Femoral Neck: g/cm2 (1.048) / T-score (0.1) / Z-score (0.8) Right Femur Total: g/cm2 (0.956) / T-score (-0.4) / Z-score (0.0) Right Femoral Neck: g/cm2 (1.033) / T-score (0.0) / Z-score (0.7) BD/Dexa Bone Density Study IMPRESSION: The patient is considered normal as outlined below according to World [place] Organization (WHO) criteria with a low fracture risk. Reference Information: The T-score is the number of standard deviations above or below the standard which is normal for young adults at their peak bone mineral density. The World Health Organization (WHO) interprets the T-scores as follows: Above -1 Normal bone density Between -1 and -2.5 Osteopenia Equal to / or below -2.5 Osteoporosis As a practical clinical guideline, osteopenia may be graded as follows: Mild -1 through -1.5 Moderate -1.6 through -2.0 Severe -2.1 through -2.4 The Z-score is the number of standard deviations above or below age-matched controls. A Z-score of less than -1.5 would be considered abnormal. References: 1. NIH Osteoporosis and Related Bone Diseases www osteo.org 2. International Society for Clinical Densitometry www iscd.org 3. National Osteoporosis Foundation www nof.org Electronically Signed: Clarke Bella MD at 15:26 EDT , Service support ,
== END ==
PROVIDERS: PCP Internal Medicine; Referring Provider Internal Medicine; Visit Provider Internal Medicine
DX: Z12.31 Encounter for screening mammogram for malignant neoplasm of breast (principal); R91.1 Solitary pulmonary nodule; M15.4 Erosive (osteo)arthritis; Z78.0 Asymptomatic menopausal state
CPT/HCPCS: 71260; 77063; 77067; 77080; Q9967